=== PATIENT | male | born 1960 | race Caucasian/White ===

== ENCOUNTER 2019-05-12 18:21 | Observation (INO) ==
[2019-05-12] MEDS ORDERED: Aspirin 81 MG TAB.CHEW PO ONE (18:34)
--- NOTE | 2019-05-12 18:36 | Emergency Department Note ---
Disposition Clinical Impression: Chest pain Qualifiers: Chest pain type: unspecified Qualified Code(s): R07.9 - Chest pain, unspecified Disposition: Admitted As Inpatient Condition: Fair Time of Disposition: 22:39 Chest Pain HPI - General Stated Complaint: Chest Pain TAN Time Seen by Provider: 05/12/19 18:24 Source: patient Mode of arrival: private vehicle Limitations: physical limitation Vital Signs Reviewed: Yes Nursing Notes Reviewed: Yes - History of Present Illness HPI Narrative: 59-year-old male with past medical history of CVA when he was 15 years old, negative heart catheterization last year, that reports one week of chest pain and shortness of breath that developed today. Patient has reported left-sided chest pain, but does not radiate, is a 3 out of 10 in severity, is not associated with nausea, diaphoresis, but is associated with lightheadedness. He says there are no exacerbating or alleviating factors. He states that it does not get worse when he gets up and walks around. He has not tried anything at home. He does have a history of blood clots. He reports that he quit smoking, drinking, any illicit drug use in 1991. Severity scale (1-10): 3 - Related Data Home Medications Medication Instructions Recorded Confirmed Gabapentin [Neurontin] 600 mg PO TID 12/08/15 12/08/15 Liraglutide [Victoza 2-Jaleel] 1.8 ml SQ DAILY 12/08/15 12/08/15 Lisinopril [Zestril] 10 mg PO DAILY 12/08/15 12/08/15 Metoprolol [Lopressor] 25 mg PO BID 12/08/15 12/08/15 Furosemide [Lasix] 40 mg PO DAILY 12/15/15 12/15/15 Allergies Allergy/AdvReac Type Severity Reaction Status Date / Time Penicillins Allergy Anaphylaxis Verified 08/09/17 18:54 Review of Systems: In addition to that documented in the HPI above, the additional ROS was obtained: Constitutional: Denies fevers or chills Eyes: Denies vision changes ENMT: Denies sore throat CV: Reports chest pain Resp: Reports SOB GI: Denies vomiting or diarrhea : Denies painful urination MSK: Denies recent trauma Skin: Denies new rashes Neuro: Denies new numbness or tingling or weakness Reports lightheadedness Chest Pain PMH - Past Medical History Medical history: Reports: CVA, DVT, diabetes, GERD Surgical history: Reports: other Psychiatric history: Reports: no psych history - Social History Smoking Status: Former smoker Alcohol use: Reports: none Drug use: Reports: none Physical Exam General: A&O x 3. Appears mildly distressed. Well developed, well nourished. Head: atraumatic, normocephalic. ENT: No conjunctival injection, no scleral icterus. PERRLA. EOMI. Oropharynx non- erythematous. mucous membranes moist. Neuro: No focal deficits, no speech deficit, no facial droop, mentating well. BUE/BLE Str 5/5. Michael UE/LE sensation intact. CN II-XII intact. Cerebellar testing with asmmon-fm-aelc and pxbm-vp-[id number] intact. Pulm: Lungs CTAB A/P. No wheezes, rales, ronchi. Cardio: RRR no m/r/g. Chest not tender to palpation. Abd: Soft, distended. Normoactive bowel sounds. Non-tender to palpation. No guarding. Non rigid. Extremities: Radial pulses 2+ michael, dorsalis pedis/posterior tibialis 2+ michael. Michael, non-pitting, LE edema. No cyanosis, clubbing. Skin: warm, dry, intact. Michael LE vascular insufficiency rashes. Multiple lower extremity abrasions that are well healing without evidence of purulent drainage. Psych: Appropriate mood and affect. Answers questions appropriately. Cooperative with exam. - General Limitations: physical limitation General appearance: alert, in distress, obese Course Vital Signs Temperature 98.1 F 05/12/19 18:27 Pulse Rate 64 05/12/19 18:27 Respiratory Rate 16 05/12/19 18:27 Blood Pressure 136/61 05/12/19 18:27 O2 Sat by Pulse Oximetry 97 05/12/19 18:27 Temperature 98.1 F 05/12/19 18:27 Pulse Rate 62 05/12/19 19:29 Respiratory Rate 18 05/12/19 19:29 Blood Pressure 112/59 05/12/19 19:29 O2 Sat by Pulse Oximetry 96 05/12/19 19:29 Oxygen Delivery Oxygen Delivery Room Air Chest Pain - [facility] Narrative Medical decision making narrative: 59-year-old male that presents with chest pain for one week and shortness of breath to to began today, heart score of 5, history of DVT. Concern for acute coronary syndrome, PE, PNA, will order EKG, CXR, CBC, BMP, d-dimer, troponin. Suspect admission given heart score and risk factors. Patient's chest x-ray did not show any acute cardiopulmonary findings, EKG did not show any signs for ischemia, d-dimer was negative, troponin was not elevated. However given patient's risk factors and heart score he was thought to be a candidate for further inpatient workup. Patient was admitted to the hospitalist Dr. Pak, who requested that we start heparin given his risk factors and chest pain. Results of the workup including any imaging and/or labwork was shared with the patient at bedside. Patient was given an opportunity to ask questions at bedside and all of their concerns were addressed. Patient verbalized understanding and agreement with plan of care. Pt remained stable while in the department. - Medical Records Medical records reviewed: Yes I reviewed the patient's medical records. - Lab Data Lab results reviewed: Yes I reviewed the patient's lab results. Result diagrams: 05/12/19 18:50 05/12/19 18:50 Lab Results 05/12/19 05/12/19 05/12/19 Range/Units 18:50 18:50 18:50 WBC 8.7 (4.3-11.1) K/mcL RBC 3.94 L (4.19-5.50) M/mcL Hgb 11.1 L (12.9-16.9) g/dL Hct 34.3 L (37.5-50.1) % MCV 87.1 (83.0-100.0) fL MCH 28.2 (28.0-33.3) pg MCHC 32.4 (31.6-35.5) g/dL RDW 13.3 (11.5-14.5) % Plt Count 179 (140-400) K/mcL MPV 11.5 (9.4-12.4) fL Immature Gran % 0.5 (0-4) % Seg Neutrophils % 74.0 % Lymphocytes % 13.7 % Monocytes % 6.4 % Eosinophils % 4.8 % Basophils % 0.6 % Neutrophils # 6.5 (1.6-8.9) K/mcL Lymphocytes # 1.2 (0.6-4.6) K/mcL Monocytes # 0.6 (0.0-1.3) K/mcL Eosinophils # 0.4 (0.0-0.6) K/mcL Basophils # 0.1 (0.0-0.2) K/mcL PT 9.7 (9.4-12.1) Seconds INR 0.9 APTT 30.3 (26.0-36.0) Seconds D-Dimer 388 (0-500) ng/mLFEU Sodium 138 (136-145) mEq/L Potassium 4.5 (3.5-5.1) mEq/L Chloride 106 (98-107) mEq/L Carbon Dioxide 21 L (23-29) mEq/L BUN 41 H (6-20) mg/dL Creatinine 1.75 H (0.70-1.30) mg/dL Est GFR ( Amer) 49 L (> 60) Est GFR (Non-Af Amer) 40 L (> 60) BUN/Creatinine Ratio 23 (6-26) Glucose 357 H (70-105) mg/dL Calculated Osmolality 310 H (280-300) Calcium 8.4 L (8.6-10.3) mg/dL Troponin I < 0.03 (< 0.04) ng/mL - Radiology Data Radiology results reviewed: Yes I reviewed the patient's radiology results. Chest X-Ray 05/12/19 18:34 IMPRESSION: No acute cardiopulmonary disease. D/ / Gene Mancia MD / Gene Mancia MD Interpreting Provider: Gene Mancia MD - EKG Data EKG attestation: Yes I reviewed and interpreted this EKG. EKG results narrative: Heart rate 64, rhythm sinus, axis normal. AR 178, QRS 147 and prolonged, QTC 447. Elevation in aVR also noted on previous study dated 10/12/2013. 0 ST segment depressions noted in V1, V2, lead 2, lead aVF, lead aVL. Depressions noted on previous study in leads II, III, aVL, V1, V2. Right bundle branch block noted which was also noted on previous study. Heart Score - Score History: Moderately Suspicious EKG: Non Specific repolarisation Disturbance Age: 45-65 Risk Factors: Equal/Greater than 3 risk factor or history of atherosclerotic disease Troponin: Less than normal limit HEART Score Total: 5
--- NOTE | 2019-05-12 18:55 | Emergency Department Note ---
Disposition Clinical Impression: Chest pain Qualifiers: Chest pain type: unspecified Qualified Code(s): R07.9 - Chest pain, unspecified Disposition: Admitted As Inpatient Condition: Fair Time of Disposition: 22:00 General Adult HPI - General Chief complaint: ED Chest Pain Stated complaint: Chest Pain TAN Time Seen by Provider: 05/12/19 18:24 Source: patient Mode of arrival: private vehicle Limitations: physical limitation Nursing Notes Reviewed: Yes Vital Signs Reviewed: Yes - History of Present Illness Pain Scale: 3 - Related Data Home Medications Medication Instructions Recorded Confirmed Gabapentin [Neurontin] 600 mg PO TID 12/08/15 05/12/19 Liraglutide [Victoza 2-Jaleel] 1.8 mg SQ DAILY 12/08/15 05/12/19 Lisinopril [Zestril] 10 mg PO DAILY 12/08/15 05/12/19 Metoprolol [Lopressor] 25 mg PO BID 12/08/15 05/12/19 Amlodipine Besylate 10 mg PO DAILY 05/12/19 05/12/19 Ascorbate Calcium [Vitamin C] 500 mg PO DAILY 05/12/19 05/12/19 Aspirin [Ecotrin] 650 mg PO BID 05/12/19 05/12/19 Cholecalciferol (D-3) [Vitamin D] 1,000 unit PO DAILY 05/12/19 05/12/19 Cyanocobalamin (Vitamin B-12) 1,000 mcg PO DAILY 05/12/19 05/12/19 [Vitamin B12] Furosemide [Lasix] 40 mg PO DAILY 05/12/19 05/12/19 Glimepiride [Amaryl] 1 mg PO DAILY 05/12/19 05/12/19 Insulin Degludec [Tresiba 80 unit SQ BID 05/12/19 05/12/19 Flextouch U-100] Vitamin E 400 unit PO DAILY 05/12/19 05/12/19 Allergies Allergy/AdvReac Type Severity Reaction Status Date / Time Penicillins Allergy Anaphylaxis Verified 08/09/17 18:54 Past Medical History - Past Medical History Medical history: Reports: CVA, DVT, diabetes, GERD Surgical history: Reports: other Psychiatric history: Reports: no psych history - Social History Smoking Status: Former smoker Smokeless Tobacco Status: No Alcohol use: Reports: none Drug use: Reports: none Physical Exam - General Limitations: physical limitation General appearance: alert, in distress, obese Course Vital Signs Temperature 98.1 F 05/12/19 18:27 Pulse Rate 64 05/12/19 18:27 Respiratory Rate 16 05/12/19 18:27 Blood Pressure 136/61 05/12/19 18:27 O2 Sat by Pulse Oximetry 97 05/12/19 18:27 Temperature 98.6 F 05/13/19 00:17 Pulse Rate 80 05/13/19 00:17 Respiratory Rate 18 05/13/19 00:17 Blood Pressure 146/93 05/13/19 00:17 O2 Sat by Pulse Oximetry 99 05/13/19 00:17 Oxygen Delivery Oxygen Delivery Room Air Medical Decision Making - Lab Data Result diagrams: 05/12/19 18:50 05/12/19 18:50 Lab Results 05/12/19 05/12/19 05/12/19 Range/Units 18:50 18:50 18:50 WBC 8.7 (4.3-11.1) K/mcL RBC 3.94 L (4.19-5.50) M/mcL Hgb 11.1 L (12.9-16.9) g/dL Hct 34.3 L (37.5-50.1) % MCV 87.1 (83.0-100.0) fL MCH 28.2 (28.0-33.3) pg MCHC 32.4 (31.6-35.5) g/dL RDW 13.3 (11.5-14.5) % Plt Count 179 (140-400) K/mcL MPV 11.5 (9.4-12.4) fL Immature Gran % 0.5 (0-4) % Seg Neutrophils % 74.0 % Lymphocytes % 13.7 % Monocytes % 6.4 % Eosinophils % 4.8 % Basophils % 0.6 % Neutrophils # 6.5 (1.6-8.9) K/mcL Lymphocytes # 1.2 (0.6-4.6) K/mcL Monocytes # 0.6 (0.0-1.3) K/mcL Eosinophils # 0.4 (0.0-0.6) K/mcL Basophils # 0.1 (0.0-0.2) K/mcL PT 9.7 (9.4-12.1) Seconds INR 0.9 APTT 30.3 (26.0-36.0) Seconds D-Dimer 388 (0-500) ng/mLFEU Heparin Anti-Xa, Unfract (0.30-0.70) IU/mL Sodium 138 (136-145) mEq/L Potassium 4.5 (3.5-5.1) mEq/L Chloride 106 (98-107) mEq/L Carbon Dioxide 21 L (23-29) mEq/L BUN 41 H (6-20) mg/dL Creatinine 1.75 H (0.70-1.30) mg/dL Est GFR ( Amer) 49 L (> 60) Est GFR (Non-Af Amer) 40 L (> 60) BUN/Creatinine Ratio 23 (6-26) Glucose 357 H (70-105) mg/dL Calculated Osmolality 310 H (280-300) Calcium 8.4 L (8.6-10.3) mg/dL Troponin I < 0.03 (< 0.04) ng/mL Beta-Hydroxybutyric Acd (0.02-0.27) mmol/L 05/12/19 05/12/19 Range/Units 21:55 21:59 WBC (4.3-11.1) K/mcL RBC (4.19-5.50) M/mcL Hgb (12.9-16.9) g/dL Hct (37.5-50.1) % MCV (83.0-100.0) fL MCH (28.0-33.3) pg MCHC (31.6-35.5) g/dL RDW (11.5-14.5) % Plt Count (140-400) K/mcL MPV (9.4-12.4) fL Immature Gran % (0-4) % Seg Neutrophils % % Lymphocytes % % Monocytes % % Eosinophils % % Basophils % % Neutrophils # (1.6-8.9) K/mcL Lymphocytes # (0.6-4.6) K/mcL Monocytes # (0.0-1.3) K/mcL Eosinophils # (0.0-0.6) K/mcL Basophils # (0.0-0.2) K/mcL PT (9.4-12.1) Seconds INR APTT (26.0-36.0) Seconds D-Dimer (0-500) ng/mLFEU Heparin Anti-Xa, Unfract 0.02 L (0.30-0.70) IU/mL Sodium (136-145) mEq/L Potassium (3.5-5.1) mEq/L Chloride (98-107) mEq/L Carbon Dioxide (23-29) mEq/L BUN (6-20) mg/dL Creatinine (0.70-1.30) mg/dL Est GFR ( Amer) (> 60) Est GFR (Non-Af Amer) (> 60) BUN/Creatinine Ratio (6-26) Glucose (70-105) mg/dL Calculated Osmolality (280-300) Calcium (8.6-10.3) mg/dL Troponin I (< 0.04) ng/mL Beta-Hydroxybutyric Acd 0.14 (0.02-0.27) mmol/L Attestation Statement - Attestation Attestation: I examined this patient and my medical decision-making was reviewed with the Resident Physician. I agree with the documented findings, disposition and treatment plan as described except to the extent set forth below. Patient presented to the ED with a chief complaint of shortness of breath and chest pain. Patient describes being in short of breath at rest. States he is very tired last night. Had trouble staying awake. He describes a heaviness in his left arm with tingling in his fingers. No cardiac history. He had a heart catheter last year. He has no history of lung disease. He has a history of smoking but quit almost 20 years ago. He does have sleep apnea and is compliant with his CPAP. Tonight he went to [facility] and was unable to walk from the back of the store to the front. On examination he does not appear in any distress. His lung sounds are diminished. Heart regular. He does have 1-2+ pitting edema in his legs that he states is chronic. Plan. Cardiac workup. He does have a history of blood clots. We will check d-dimer. EKG was reviewed with the resident. D-dimer is negative. Chest x-rays clear. Cardiac workup is unremarkable. Patient be admitted for further workup secondary risk factors and a heart score 5.
[2019-05-12] MEDS: Nitroglycerin 0.4 MG TAB.SUBL SL PRN ×3 (19:00→19:15)
[2019-05-12 19:24] LABS: Basophils # 0.1 K/mcL (0.0-0.2); Basophils % 0.6 %; Eosinophils # 0.4 K/mcL (0.0-0.6); Eosinophils % 4.8 %; Hematocrit 34.3 % (37.5-50.1); Hemoglobin 11.1 g/dL (12.9-16.9); Immature Granulocytes % 0.5 % (0-4); Lymphocytes # 1.2 K/mcL (0.6-4.6); Lymphocytes % 13.7 %; Mean Corpuscular HGB Conc 32.4 g/dL (31.6-35.5); Mean Corpuscular Hemoglobin 28.2 pg (28.0-33.3); Mean Corpuscular Volume 87.1 fL (83.0-100.0); Mean Platelet Volume 11.5 fL (9.4-12.4); Monocytes # 0.6 K/mcL (0.0-1.3); Monocytes % 6.4 %; Neutrophils # 6.5 K/mcL (1.6-8.9); Platelet Count 179 K/mcL (140-400); Red Blood Count 3.94 M/mcL (4.19-5.50); Red Cell Distribution Width 13.3 % (11.5-14.5); White Blood Count 8.7 K/mcL (4.3-11.1)
[2019-05-12 19:38] LABS: INR 0.9; Prothrombin Time 9.7 Seconds (9.4-12.1)
[2019-05-12 19:41] LABS: Activated Partial Thrombo Time 30.3 Seconds (26.0-36.0)
[2019-05-12 19:46] LABS: BUN/Creatinine Ratio 23 (6-26); Blood Urea Nitrogen 41 mg/dL (6-20); Calcium 8.4 mg/dL (8.6-10.3); Carbon Dioxide 21 mEq/L (23-29); Chloride 106 mEq/L (98-107); Glucose 357 mg/dL (70-105); Osmolality,Calculated 310 (280-300); Potassium 4.5 mEq/L (3.5-5.1); Sodium 138 mEq/L (136-145); eGFR For African Americans 49 (> 60); eGFR For Non-African Americans 40 (> 60)
[2019-05-12 19:47] LABS: Troponin I < 0.03 ng/mL (< 0.04)
[2019-05-12] MEDS ORDERED: *HR* Heparin 5,000 UNIT/ML VIAL IVP ONE ×2 (21:55→22:31)
[2019-05-12] MEDS ORDERED: *HR* Heparin 5,000 UNIT/ML VIAL IVP PRN ×4 (21:55→22:31)
[2019-05-12] MEDS ORDERED: 0.9 % Sodium Chloride 1,000 ML IVC ONE (21:57)
[2019-05-12] MEDS ORDERED: Heparin 25,000 UNIT/250 ML D5W 25,000 UNIT/250 ML IV.SOLN IVC SCH ×2 (22:00→22:45)
[2019-05-12 22:33] LABS: VBG HCO3 21 mEq/L (21-27); VBG PCO2 32 mmHg (41-51); VBG PH 7.43 pH Units (7.32-7.42); VBG PO2 177 mmHg (25-50)
[2019-05-13] MEDS ORDERED: Acetaminophen 325 MG TABLET PO PRN (00:45)
[2019-05-13] MEDS ORDERED: Naloxone 0.4 MG/ML INJ IVP PRN (01:27)
--- NOTE | 2019-05-13 02:18 | Internal Med History&Physical ---
Date of Encounter: 05/13/19 Time of Encounter: 01:00 Internal Medicine - H&P: HPI Chief complaint: Chest pain Admitted From: Home Plans for Post Hospital Care: Home History of present illness: Mr. Purdy is a 59 year old male with past medical history significant for hypertension, CVA with right-sided deficits, DVT, diabetes, renal disease, GERD, diverticulitis with bowel resection, and chronic back pain who presents for 1 week history of intermittent left sided chest pain. Describes pain as sharp rated at 9/10 when at its worst, lasting a few hours, then resolving spontaneously. Pain is associated with shortness of breath and left arm heaviness and tingling. Symptoms are worse with exertion. Denies any home treatment. Symptoms have been happening more frequently and becoming more severe. Pain was constant last night until receiving nitroglycerin 3 in the ER which has nearly completely resolved his pain. Currently denies any current headache, numbness, tingling, shortness of breath, cough, abdominal pain, bowel or bladder changes. ER reported EKG as sinus rhythm, with elevation in aVR noted on previous study in 2012, and ST depression in V1, V2, aVF, aVL, and II, with depressions noted on previous EKG in II, III, aVL, V1, V2, and right bundle branch block also noted on previous EKG. ER also obtain chest x-ray which showed no acute cardiopulmonary disease. ER initially was going to start p atient on heparin drip but then discontinued orders as they thought patient took Coumadin and had a subtherapeutic INR, however patient later reported that he no longer takes Coumadin as he was on it short-term for his previous DVT. Patient reports having cardiac catheterization without interventions sometime last year at [facility] with Dr. Woodard however unable to locate any records in EMR. Also rep orts having previous echocardiogram and cardiac stress testing but is unsure how long ago. Denies any cardiology follow-up since cardiac catheterization. Checks blood sugars regularly and reports they have been averaging 140-150. Follows regularly with PCP. Past Med Surg Social Fam HX - Past Medical History Medical history: CVA, DVT, diabetes, GERD, renal disease, other Additional medical history: cath x1 year ago. stage III kidney disease. sleep apnea on CPAP Psychiatric history: no psych history - Past Surgical History Surgical History: other Additional surgical history: bowel resection 1996 - Social History Smoking Status: Former smoker Smokeless Tobacco Status: No Alcohol use: none Drug use: none - Family History Father Living Status: Hx Family Cardiac Disorders: Yes Hx Family Endocrine Disorder: Yes Internal Medicine - H&P: Meds Gabapentin [Neurontin] 600 mg PO TID 12/08/15 [History] Liraglutide [Victoza 2-Jaleel] 1.8 mg SQ DAILY 12/08/15 [History] Lisinopril [Zestril] 10 mg PO DAILY 12/08/15 [History] Metoprolol [Lopressor] 25 mg PO BID 12/08/15 [History] Amlodipine Besylate 10 mg PO DAILY 05/12/19 [History] Ascorbate Calcium [Vitamin C] 500 mg PO DAILY 05/12/19 [History] Aspirin [Ecotrin] 650 mg PO BID 05/12/19 [History] Cholecalciferol (D-3) [Vitamin D] 1,000 unit PO DAILY 05/12/19 [History] Cyanocobalamin (Vitamin B-12) [Vitamin B12] 1,000 mcg PO DAILY 05/12/19 [History] Furosemide [Lasix] 40 mg PO DAILY 05/12/19 [History] Glimepiride [Amaryl] 1 mg PO DAILY 05/12/19 [History] Insulin Degludec [Tresiba Flextouch U-100] 80 unit SQ BID 05/12/19 [History] Vitamin E 400 unit PO DAILY 05/12/19 [History] Allergy/AdvReac Type Severity Reaction Status Date / Time Penicillins Allergy Anaphylaxis Verified 08/09/17 18:54 All Systems PM: A 10-system review of systems was performed and is negative for pertinent findings except as documented above in the HPI. - Constitutional Vitals: Temp Pulse Resp BP Pulse Ox 98.6 F 80 18 146/93 99 05/13/19 00:17 05/13/19 00:17 05/13/19 00:17 05/13/19 00:17 05/13/19 00:17 Exam: General: Alert and oriented. Skin:Normal color. Chronic lower extremity vascular skin changes at baseline per patient. HEENT:Pupils equal, round and reactive. Cardiovascular:Heart sounds distant, no rubs, murmurs or gallops. No JVD. Pulse regular. Lungs:Breath sounds decreased, no wheezes or crackles. Abdomen:Soft, non-tender, no rigidity. Extremities:No deformity, tenderness, no joint swelling or clubbing. 2+ pitting edema noted to bilateral lower extremities which patient reports being at his baseline. Neurological:Normal cognition and motor skills. Pulses:Carotid and radial pulses normal +2. Rest of the physical exam is non contributory. Internal Med - H&P Results - Labs CBC & Chem 7: 05/12/19 18:50 05/12/19 18:50 Labs: Short CBC 05/12/19 Range/Units 18:50 WBC 8.7 (4.3-11.1) K/mcL Hgb 11.1 L (12.9-16.9) g/dL Hct 34.3 L (37.5-50.1) % Plt Count 179 (140-400) K/mcL Neutrophils # 6.5 (1.6-8.9) K/mcL BMP 05/12/19 18:50 Sodium 138 Potassium 4.5 Chloride 106 Carbon Dioxide 21 L BUN 41 H Creatinine 1.75 H Glucose 357 H Calcium 8.4 L Cardiac Enzymes 05/12/19 05/13/19 Range/Units 18:50 01:10 Troponin I < 0.03 < 0.03 (< 0.04) ng/mL - ABG Interpretation ABG results: 05/12/19 22:30 VBG pH 7.43 H VBG pCO2 32 L VBG pO2 177 H VBG HCO3 21 - Impressions ITS Impressions Chest X-Ray 05/12/19 18:34 IMPRESSION: No acute cardiopulmonary disease. D/ / Gene Mancia MD / Gene Mancia MD Interpreting Provider: Gene Mancia MD - Assessment and Plan (1) Chest pain Current Visit: Yes Status: Acute Assessment and plan: Continuous cardiac monitoring. EKG with new ST depression, but no more recent EKG for comparison available besides from 2012. Initial troponin in ER negative, serial troponins ordered. Symptoms resolved with nitroglycerin in ER. Reports having cardiac catheterization at [facility] last year with Dr Woodard which was normal but unable to locate any records in EMR. Echocardiogram ordered. Consider pharmacologic stress test pending renal function. Qualifiers: Chest pain type: unspecified Qualified Code(s): R07.9 - Chest pain, unspecified (2) Acute on chronic kidney failure Current Visit: Yes Status: Acute Assessment and plan: Appears acute on chronic with most recent lab comparison from 2017. Received 1 L fluid bolus while in ER. Reports taking NSAIDs recently for his chronic back pain. Hold Lasix for now as patient does not appear fluid overloaded and lower extremity edema is at his baseline. Avoid nephrotoxins as possible. Repeat labs ordered. Consult nephrology if kidney function worsening. Qualifiers: Acute renal failure type: unspecified Chronic kidney disease stage: unspecified stage Qualified Code(s): N17.9 - Acute kidney failure, unspecified; N18.9 - Chronic kidney disease, unspecified (3) Hemoglobin decreased Current Visit: Yes Status: Acute Assessment and plan: Currently decreased from lab comparison from 2017. Repeat labs ordered. (4) Diabetes mellitus Current Visit: Yes Status: Chronic Assessment and plan: Hold home medications. Sliding scale insulin ordered. Accu-Chek's ordered. Qualifiers: Diabetes mellitus type: type 2 Qualified Code(s): E11.9 - Type 2 diabetes mellitus without complications (5) Hypertension Current Visit: Yes Status: Chronic Assessment and plan: Continue home medications once verified. Qualifiers: Hypertension type: unspecified Qualified Code(s): I10 - Essential (primary) hypertension (6) Sleep apnea Current Visit: Yes Status: Chronic Assessment and plan: Continue CPAP. Qualifiers: Sleep apnea type: unspecified type Qualified Code(s): G47.30 - Sleep apnea, unspecified - Time Spent With Patient Total time spent is greater than 50% in coordination of care (as documented) at patient's floor/unit and/or counseling patient:
[2019-05-13] MEDS ORDERED: Dextrose Gel 15 GM/37.5 ML TUBE PO PRN ×2 (02:24)
[2019-05-13] MEDS ORDERED: *HR* Dextrose 50 % in Water (Syg) 50 ML SYRINGE IVP PRN (02:24)
[2019-05-13] MEDS ORDERED: D5% in Water 1,000 ML IVC PRN (02:24)
[2019-05-13] MEDS: Insulin LISPRO 300 UNITS/3 ML VIAL SQ SCH ×4 (05:33→23:20)
[2019-05-13] MEDS ORDERED: Regadenoson 0.4 MG/5 ML SYRINGE IVP ONE (09:03)
--- NOTE | 2019-05-13 12:49 | Electrocardiograph Report ---
[facility] Date[facility] 2019-05-12 Pat Name: Chucho Purdy Department: [id number] Room: [facility] Gender: M Cat Operator: : 1960 Requested By: Caprice Petty Order Number: [id number] Reading MD: Swati Harris Measurements Intervals [place] Rate: 64 P: 18 NH: 178 QRS: 83 QRSD: 147 T: 42 QT: 433 QTc: 447 Interpretive Statements Sinus rhythm Right bundle branch block Electronically Signed On 05-13-2019 12:48:01 EDT by Swati Harris
[2019-05-13 16:47] LABS: Hematocrit 37.1 % (37.5-50.1); Hemoglobin 11.8 g/dL (12.9-16.9); Mean Corpuscular HGB Conc 31.8 g/dL (31.6-35.5); Mean Corpuscular Hemoglobin 27.8 pg (28.0-33.3); Mean Corpuscular Volume 87.5 fL (83.0-100.0); Mean Platelet Volume 11.4 fL (9.4-12.4); Platelet Count 173 K/mcL (140-400); Red Blood Count 4.24 M/mcL (4.19-5.50); Red Cell Distribution Width 13.4 % (11.5-14.5); White Blood Count 8.5 K/mcL (4.3-11.1)
[2019-05-13] MEDS: Gabapentin 300 MG CAPSULE PO SCH ×2 (17:02→23:19)
--- NOTE | 2019-05-13 17:03 | Event Note ---
Date of Encounter: 05/13/19 Time of Encounter: 17:02 Patient does not have any chest pain at this time. Complains mainly of back pain. Which is chronic for him. He takes Robaxin at home. We will resume this medication. Patient is troponins have been negative. Underwent cardiac stress test today. Needs reimaging tomorrow. 2-D echocardiogram pending. Will await results. Monitor renal function.
[2019-05-13 17:06] LABS: Blood Urea Nitrogen 28 mg/dL (6-20); Calcium 8.5 mg/dL (8.6-10.3); Carbon Dioxide 22 mEq/L (23-29); Chloride 109 mEq/L (98-107); Glucose 204 mg/dL (70-105); Osmolality,Calculated 297 (280-300); Potassium 4.4 mEq/L (3.5-5.1); Sodium 138 mEq/L (136-145)
[2019-05-13 17:25] LABS: BUN/Creatinine Ratio 20 (6-26); eGFR For African Americans > 60 (> 60); eGFR For Non-African Americans 52 (> 60)
[2019-05-13] MEDS: Aspirin Enteric Coated 325 MG Tablet PO SCH (23:19)
[2019-05-13] MEDS: Insulin DETEMIR 100 UNIT/ML X5UNITS SQ SCH (23:20)
[2019-05-13] MEDS: Methocarbamol 750 MG TABLET PO PRN (23:36)
[2019-05-14] MEDS ORDERED: Perflutren Lipid Microsphere 1.3 ML in 0.9 % Sodium Chloride 8.7 ML IVP ONE (07:36)
[2019-05-14] MEDS ORDERED: Cholecalciferol (D-3) 1,000 UNIT TABLET PO SCH (09:00)
[2019-05-14] MEDS ORDERED: amLODIPine 5 MG TABLET PO SCH (09:00)
[2019-05-14] MEDS ORDERED: Cyanocobalamin (B-12) 1,000 MCG TABLET PO SCH (09:00)
[2019-05-14] MEDS: Gabapentin 300 MG CAPSULE PO SCH (09:35)
[2019-05-14] MEDS: Aspirin Enteric Coated 325 MG Tablet PO SCH (09:36)
[2019-05-14] MEDS: Insulin LISPRO 300 UNITS/3 ML VIAL SQ SCH ×2 (09:38→12:14)
[2019-05-14] MEDS: Methocarbamol 750 MG TABLET PO PRN (09:41)
[2019-05-14] MEDS: Insulin DETEMIR 100 UNIT/ML X5UNITS SQ SCH (09:41)
[2019-05-14 09:43] LABS: BUN/Creatinine Ratio 17 (6-26); Blood Urea Nitrogen 23 mg/dL (6-20); Carbon Dioxide 23 mEq/L (23-29); Chloride 108 mEq/L (98-107); Glucose 111 mg/dL (70-105); Osmolality,Calculated 296 (280-300); Potassium 4.3 mEq/L (3.5-5.1); Sodium 141 mEq/L (136-145); eGFR For African Americans > 60 (> 60); eGFR For Non-African Americans 53 (> 60)
--- NOTE | 2019-05-14 11:59 | Discharge Summary ---
- NOTES TO OUTPATIENT PROVIDER Notes to Outpatient Provider: Patient with a history of hypertension, DVT, diabetes, chronic kidney disease stage III, chronic back pain was hospitalized here after presenting with shortness of breath and left arm heaviness. Given his comorbidities, he was monitored with telemetry and also his troponins were trended. His EKG did not show any new changes compared to his previous EKGs. His troponins were negative. He then underwent cardiac stress test which was negative for any acute ischemia. His echocardiogram shows normal ejection fraction of 55% with normal wall motion. Currently patient is chest pain-free and is stable to be discharged home. Orders not resulted at time of discharge: Pending orders 05/13/19 08:40 NM ekaterina perf SPECT multi [NM] Routine Date of Encounter: 05/14/19 Time of Encounter: 11:57 - Discharge Diagnosis (1) Chest pain Priority: Primary Status: Acute Qualifiers: Chest pain type: unspecified Qualified Code(s): R07.9 - Chest pain, unspecified (2) Acute on chronic kidney failure Priority: Secondary Status: Acute Qualifiers: Acute renal failure type: unspecified Chronic kidney disease stage: stage 3 (moderate) Qualified Code(s): N17.9 - Acute kidney failure, unspecified; N18.3 - Chronic kidney disease, stage 3 (moderate) (3) Diabetes mellitus Priority: Secondary Status: Chronic Qualifiers: Diabetes mellitus type: type 2 Diabetes mellitus terminal supervisor insulin use: with terminal supervisor use Diabetes mellitus complication status: with kidney complications Diabetes mellitus complication detail: with chronic kidney disease Chronic kidney disease stage: stage 3 (moderate) Qualified Code(s): E11.22 - Type 2 diabetes mellitus with diabetic chronic kidney disease; N18.3 - Chronic kidney disease, stage 3 (moderate); Z79.4 - [facility] (current) use of insulin (4) Sleep apnea Priority: Secondary Status: Chronic Qualifiers: Sleep apnea type: unspecified type Qualified Code(s): G47.30 - Sleep apnea, unspecified (5) Hypertension Priority: Secondary Status: Chronic Qualifiers: Hypertension type: essential hypertension Qualified Code(s): I10 - Essential (primary) hypertension (6) Anemia Priority: Secondary Status: Chronic Qualifiers: Anemia type: due to chronic kidney disease Chronic kidney disease stage: stage 3 (moderate) Qualified Code(s): N18.3 - Chronic kidney disease, stage 3 (moderate); D63.1 - Anemia in chronic kidney disease (7) Chronic kidney disease, stage III (moderate) Priority: Secondary Status: Chronic Hospital course: Mr. Purdy is a 59 year old male Patient with a history of hypertension, DVT, diabetes, chronic kidney disease stage III, chronic back pain was hospitalized here after presenting with shortness of breath and left arm heaviness. Given his comorbidities, he was monitored with telemetry and also his troponins were trended. His EKG did not show any new changes compared to his previous EKGs. His troponins were negative. He then underwent cardiac stress test which was negative for any acute ischemia. His echocardiogram shows normal ejection fraction of 55% with normal wall motion. Currently patient is chest pain-free and is stable to be discharged home. Patient also had mild acute kidney injury on chronic kidney disease most likely related to chronic Lasix use. His Lasix was held temporarily and his renal function has returned to baseline. He may resume Lasix tomorrow. I am also placing him on a trial of PPI as patient takes 325 mg of aspirin twice a day and may have underlying GERD/gastritis which could also be causing his pain. Discharge discussed with: patient, nurse - Time Spent with Patient Total time spent providing and/or coordinating discharge services: Time spent: Less than 30 minutes (25 min) - Discharge Medications Prescriptions: New Omeprazole [PriLOSEC] 20 mg PO DAILY #30 cap Continued Metoprolol [Lopressor] 25 mg PO BID Lisinopril [Zestril] 10 mg PO DAILY Liraglutide [Victoza 2-Jaleel] 1.8 mg SQ DAILY Gabapentin [Neurontin] 600 mg PO TID Amlodipine Besylate 10 mg PO DAILY Furosemide [Lasix] 40 mg PO DAILY Insulin Degludec [Tresiba Flextouch U-100] 80 unit SQ BID Aspirin [Ecotrin] 650 mg PO BID Glimepiride [Amaryl] 1 mg PO DAILY Cyanocobalamin (Vitamin B-12) [Vitamin B12] 1,000 mcg PO DAILY Vitamin E 400 unit PO DAILY Cholecalciferol (D-3) [Vitamin D] 1,000 unit PO DAILY Ascorbate Calcium [Vitamin C] 500 mg PO DAILY Home Medications: Gabapentin [Neurontin] 600 mg PO TID 12/08/15 [History] Liraglutide [Victoza 2-Jaleel] 1.8 mg SQ DAILY 12/08/15 [History] Lisinopril [Zestril] 10 mg PO DAILY 12/08/15 [History] Metoprolol [Lopressor] 25 mg PO BID 12/08/15 [History] Amlodipine Besylate 10 mg PO DAILY 05/12/19 [History] Ascorbate Calcium [Vitamin C] 500 mg PO DAILY 05/12/19 [History] Aspirin [Ecotrin] 650 mg PO BID 05/12/19 [History] Cholecalciferol (D-3) [Vitamin D] 1,000 unit PO DAILY 05/12/19 [History] Cyanocobalamin (Vitamin B-12) [Vitamin B12] 1,000 mcg PO DAILY 05/12/19 [History] Furosemide [Lasix] 40 mg PO DAILY 05/12/19 [History] Glimepiride [Amaryl] 1 mg PO DAILY 05/12/19 [History] Insulin Degludec [Tresiba Flextouch U-100] 80 unit SQ BID 05/12/19 [History] Vitamin E 400 unit PO DAILY 05/12/19 [History] Omeprazole [PriLOSEC] 20 mg PO DAILY #30 cap 05/14/19 [Rx] Allergies/Adverse Reactions: Allergy/AdvReac Type Severity Reaction Status Date / Time Penicillins Allergy Anaphylaxis Verified 08/09/17 18:54 Date of admission: 05/12/19 22:06 Primary care physician: Dagoberto Thurman MD Discharging clinician: Rosa M Kerr Anticipated date of discharge: 05/14/19 - Constitutional Vitals: Temp Pulse Resp BP Pulse Ox 98.2 F 56 16 116/104 96 05/14/19 11:34 05/14/19 11:34 05/14/19 11:34 05/14/19 11:34 05/14/19 11:34 Exam: General: Patient is alert, no acute distress, oriented x 3, severe obesity Respiratory: Good respiratory effort. Normal breath sounds. No wheezing or crackles. Cardiovascular: Regular rate and rhythm. s1 and s2 normal No clicks, rubs, gallops, or murmurs. No pedal edema Abdomen: Abdomen is soft, nontender. Bowel sounds are present Musculoskeletal: Spontaneously moving all extremities Skin: warm, dry, intact. Neuro: Alert oriented x 3 normal cranial nerves, no focal deficits - Patient Status Disposition: Home, Self-Care Condition: Good Functional capacity at discharge: uses cane/walker Overall status at discharge: patient is progressing back to baseline - Discharge Instructions Instructions: Chest Pain (DC), Anemia (GEN), Chronic Hypertension (DC), Diabetes Mellitus Type 2 in Adults (DC) Follow Up With: Dagoberto Thurman MD [Primary Care Provider] - (in 1 weeks) - Diet and Activity Activity: as per physical therapy Diet: advance to your usual diet, diabetic diet, low fat, low cholesterol, low salt diet
[2019-05-14 12:30] VITALS: BP 140/69
== END 2019-05-14 13:00 | disposition home or self-care (01) ==
LOC: EMEROOARM 18:21 → CDU 18:21 → SUATTDRO 22:06 → CDU 22:11
PROVIDERS: ADMIT Family Medicine; ATTEND Internal Medicine